=== PATIENT | male | born 1945 | race Caucasian/White ===

== ENCOUNTER 2016-06-07 17:34 | Emergency (ER) | payer MEDICARE, OTHER ==
--- NOTE | 2016-06-07 18:00 | EDM.PDOC ---
ED HPI GENERAL MEDICAL PROBLEM - General Chief Complaint: General Stated Complaint: leaking surgical dressing Time Seen by Provider: 06/07/16 17:42 Source of Information: Reports: Patient History Limitations: Reports: No limitations - History of Present Illness INITIAL COMMENTS - FREE TEXT/NARRATIVE: Patient had right total shoulder repair yesterday - SundayJune 06, was discharged today. He is here due to drainage. Arm is in immobilizer. Pain is controlled, he does not smoke, no drinking, no drugs. Medications include ASA, carvedilol, losartan, and allopurinol. Allergies to lisinopril. He has no other complaints. Onset: today Onset Time: 17:00 Location: Reports: upper extremity, right (right shoulder incision) - Related Data Allergies Allergy/AdvReac Type Severity Reaction Status Date / Time lisinopril Allergy Cough Verified 04/15/14 20:58 Home Meds: Home Meds Furosemide [Lasix] 40 mg PO BID 04/15/14 [History] Insulin Glarg,Human.Rec.Analog [Lantus Solostar] 50 units SQ BEDTIME 04/15/14 [ History] Losartan [Cozaar] 1 tab PO DAILY 04/15/14 [History] Pioglitazone [Actos] 30 mg PO DAILY 04/15/14 [History] Simvastatin [Simvastatin] 1 tab PO DAILY 04/15/14 [History] Spironolactone [Aldactone] 25 mg PO DAILY 04/15/14 [History] Social & Family History - Tobacco Use Smoking Status *Q: Former Smoker Years of Tobacco use: 20 - Alcohol Use Days Per Week of Alcohol Use: 2 Number of Drinks Per Day: 6 Total Drinks Per Week: 12 - Recreational Drug Use Recreational Drug Use: No ED ROS GENERAL - Review of Systems Review Of Systems: ROS reveals no pertinent complaints other than HPI. ED EXAM, GENERAL - Physical Exam Exam: See Below Exam Limited By: No limitations General Appearance: alert, WD/WN, no apparent distress Eye Exam: bilateral eye: EOMI, PERRL Neck: normal inspection Respiratory/Chest: no respiratory distress, lungs clear, normal breath sounds, no accessory muscle use, chest non-tender Cardiovascular: normal peripheral pulses, regular rate, rhythm, no edema, no gallop GI/Abdominal: normal bowel sounds, soft, non tender, no organomegaly, no distention, no abnormal bruit Extremities: normal inspection, non-tender, no pedal edema, normal capillary refill, arm pain, limited range of motion, other (Patient has drainage from his incision. It is serosanguinous. CMS intact.) Neurological: alert, oriented, CN II-XII intact, normal cognition, normal gait, normal reflexes, no motor/sensory deficits, other Psychiatric: normal affect, normal mood Skin Exam: Warm, Dry, Intact, Normal color, Wound/incision (romulo to right shoulder from surgical procedure. Wound is clean, approximated, and has minimal drainage from the bottom most distal area. No RANDY drainage is in place to assist with fluid removal. ) Lymphatic: no adenopathy Departure - Departure Time of Disposition: 18:32 Disposition: Home, Self-Care 01 Condition: good Clinical Impression: History of right shoulder replacement Instructions: Shoulder Joint Replacement, Care After Additional Instructions: Your post operative bleeding is normal. During surgery, they use saline to flush the area of blood and debris. This is continuing to drain out. If your romulo open up, your drainage does not stop over the next 2-3 days, you have severely increased pain, or are unable to move your arm, you should come in. Keep arm in immobilizer as long as ordered by surgeon. Keep incision covered until the drainage ceases to help absorb the fluid. Call if you have any questions or concerns. - Problem List & Annotations (1) History of right shoulder replacement SNOMED Code(s): 171471550, [id number] Code(s): Z96.611 - PRESENCE OF RIGHT ARTIFICIAL SHOULDER JOINT Status: Acute Priority: Low - Problem List Review Problem List Initiated/Reviewed/Updated: Yes - Assessment/Plan Assessment:: post right shoulder repair drainage Plan: Your post operative bleeding is normal. During surgery, they use saline to flush the area of blood and debris. This is continuing to drain out. If your romulo open up, your drainage does not stop over the next 2-3 days, you have severely increased pain, or are unable to move your arm, you should come in. Keep arm in immobilizer as long as ordered by surgeon. Keep incision covered until the drainage ceases to help absorb the fluid. Call if you have any questions or concerns.
== END 2016-06-07 18:25 | disposition home or self-care (01) ==
LOC: VM.ED 17:34
CPT/HCPCS: 99281-GF; 99283

== ENCOUNTER 2023-12-14 13:00 | Emergency (ER) | payer MEDICARE, OTHER ==
[2023-12-14 13:29] LABS: BASOPHILS ABSOLUTE AUTO 0.1 x10^3/uL (0.0-0.2); BASOPHILS PERCENT AUTO 0.7 % (0.2-1.2); EOSINOPHILS ABSOLUTE AUTO 0.3 x10^3/uL (0.0-0.5); EOSINOPHILS PERCENT AUTO 4.2 % (0.0-4.0); HEMATOCRIT 20.6 % (40.0-52.0); IMMATURE GRAN ABSOLUTE AUTO 0.01 x10^3/uL (0.00-0.07); LYMPHOCYTES PERCENT AUTO 14.3 % (25.0-50.0); MEAN CORPUSCULAR HEMOGLOBIN 33.3 pg (26.0-32.0); MONOCYTES ABSOLUTE AUTO 0.3 x10^3/uL (0.0-0.8); MONOCYTES PERCENT AUTO 4.3 % (2.0-11.0); NEUTROPHILS ABSOLUTE AUTO 5.3 x10^3/uL (1.8-7.7); NEUTROPHILS PERCENT AUTO 76.4 % (50.0-80.0); PLATELET COUNT,PLT 138 x10^3/uL (130-400); RED BLOOD CELL COUNT 2.04 x10^6/uL (4.5-6.0)
[2023-12-14 13:35] LABS: HEMOGLOBIN 6.8 g/dL (14.0-18.0)
[2023-12-14 13:50] LABS: INR 2.1 (0.9-1.1); PROTHROMBIN TIME 20.6 SEC (8.9-11.5)
[2023-12-14 13:58] LABS: A/G RATIO 0.78; ALANINE AMINOTRANSFERASE,ALT 17 U/L (16-63); ALBUMIN 3.1 g/dL (3.4-5.0); ALKALINE PHOSPHATASE 102 U/L (46-116); ANION GAP 21.9 mmol/L (5-15); ASPARTATE AMNIOTRANSFERASE,AST 17 U/L (15-37); BILIRUBIN TOTAL 0.3 mg/dL (0.2-1.0); CARBON DIOXIDE,CO2 18 mmol/L (21-32); CHLORIDE,CL 110 mmol/L (98-107); ESTIMATED GFR 6 mL/min (>=60); GLUCOSE RANDOM 153 mg/dL (70-99); POTASSIUM,K 4.9 mmol/L (3.5-5.1); PROTEIN TOTAL,TP 7.1 g/dL (6.4-8.2); SODIUM,NA 145 mmol/L (136-145)
[2023-12-14 14:00] LABS: BLOOD UREA NITROGEN,BUN 93 mg/dL (7-18); CREATININE 8.3 mg/dL (0.70-1.30)
[2023-12-14 18:32] VITALS: BP 95/54; PULSE 61
[2023-12-15 05:07] LABS: IRON 160 ug/dL (50-150); UIBC <55 ug/dL (155-355)
== END 2023-12-14 18:49 | disposition home or self-care (01) ==
LOC: VM.ED 13:00
DX: I13.2 Hypertensive heart and chronic kidney disease with heart failure and with stage 5 chronic kidney disease, or end stage renal disease (principal); D63.1 Anemia in chronic kidney disease; I50.9 Heart failure, unspecified; N18.6 End stage renal disease; Z99.2 Dependence on renal dialysis; I48.91 Unspecified atrial fibrillation; Z79.4 Long term (current) use of insulin; Z79.899 Other long term (current) drug therapy; Z88.8 Allergy status to other drugs, medicaments and biological substances
CPT/HCPCS: 36430; 80053; 82728; 83540; 83550; 85025; 85610; 85730; 86850; 86900; 86901; 86920; 86922; 99284; P9016

== ENCOUNTER 2024-04-14 12:39 | Emergency (ER) | payer MEDICARE, OTHER ==
[2024-04-14] MEDS: cefTRIAXone 1 GM Vial IVPUSH ONE (13:31)
[2024-04-14] MEDS: Norepinephrine Bit/D5W Premix 250 ML IV SCH (13:47)
[2024-04-14 14:27] VITALS: PULSE 74
[2024-04-14 15:08] VITALS: BP 109/47
== END 2024-04-14 15:00 | disposition short-term general hospital (02) ==
LOC: VM.ED 12:39 → SUPCPDRO 12:39 → VM.ED 15:00
DX: A41.9 Sepsis, unspecified organism (principal); I95.9 Hypotension, unspecified; R09.02 Hypoxemia; I11.0 Hypertensive heart disease with heart failure; I50.9 Heart failure, unspecified; Z88.8 Allergy status to other drugs, medicaments and biological substances; Z79.4 Long term (current) use of insulin; Z79.899 Other long term (current) drug therapy; R53.1 Weakness; R50.9 Fever, unspecified; I95.0 Idiopathic hypotension; R60.1 Generalized edema
CPT/HCPCS: 36415; 80053; 83605; 83880; 85025; 87040; 87428-QW; 93005; 93010; 96374; 96375; 99284; 99285-25; J0696

== ENCOUNTER 2024-08-04 11:02 | Emergency (ER) | payer MEDICARE, OTHER ==
[2024-08-04 11:35] LABS: HEMATOCRIT 30.7 % (40.0-52.0); HEMOGLOBIN 10.1 g/dL (14.0-18.0); MEAN CORPUSCULAR HGB CONC 32.9 g/dL (32.0-36.0); MEAN CORPUSCULAR VOLUME 103.4 fL (78.0-93.0); RED BLOOD CELL COUNT 2.97 x10^6/uL (4.5-6.0)
[2024-08-04 11:41] LABS: PLATELET COUNT,PLT 5 x10^3/uL (130-400); WHITE BLOOD CELL COUNT,WBC 1.9 x10^3/uL (4.0-10.0)
[2024-08-04 12:02] LABS: EOSINOPHILS ABSOLUTE MAN 0.1 x10^3/uL (0.0-0.5); EOSINOPHILS PERCENT MAN 3 % (0-4); LYMPHOCYTES ABSOLUTE MAN 0.4 x10^3/uL (1.0-4.8); LYMPHOCYTES PERCENT MAN 23 % (25-50); MONOCYTES PERCENT MAN 1 % (2-11); NEUTROPHILS ABSOLUTE MAN 1.4 x10^3/uL (1.8-7.7); SEG NEUTROPHILS PERCENT MAN 73 % (50-80)
[2024-08-04 12:03] LABS: HYPOCHROMASIA 1+ SLIGHT
[2024-08-04 12:05] LABS: ALANINE AMINOTRANSFERASE,ALT 14 U/L (16-63); ALBUMIN 3.3 g/dL (3.4-5.0); ALKALINE PHOSPHATASE 63 U/L (46-116); ASPARTATE AMNIOTRANSFERASE,AST 18 U/L (15-37); BILIRUBIN TOTAL 0.6 mg/dL (0.2-1.0); BLOOD UREA NITROGEN,BUN 70 mg/dL (7-18); CALCIUM 7.6 mg/dL (8.5-10.1); CARBON DIOXIDE,CO2 26 mmol/L (21-32); CHLORIDE,CL 101 mmol/L (98-107); GLUCOSE RANDOM 95 mg/dL (70-99); POTASSIUM,K 4.8 mmol/L (3.5-5.1); PROTEIN TOTAL,TP 6.3 g/dL (6.4-8.2); SODIUM,NA 139 mmol/L (136-145); TARGET CELLS 1+ SLIGHT
[2024-08-04 12:06] LABS: ANION GAP 16.8 mmol/L (5-15); PLATELET COUNT ESTIMATE MARKED DEC
[2024-08-04 12:07] LABS: CREATININE 7.4 mg/dL (0.70-1.30); ESTIMATED GFR 7 mL/min (>=60)
[2024-08-04 12:21] LABS: INR 2.4 (0.9-1.1); PROTHROMBIN TIME 24.4 SEC (9.6-12.0)
[2024-08-04 13:10] VITALS: BP 110/54; PULSE 60
== END 2024-08-04 13:30 | disposition home or self-care (01) ==
LOC: VM.ED 11:02
DX: I13.2 Hypertensive heart and chronic kidney disease with heart failure and with stage 5 chronic kidney disease, or end stage renal disease (principal); N18.6 End stage renal disease; D61.818 Other pancytopenia; B49 Unspecified mycosis; I50.9 Heart failure, unspecified; Z79.899 Other long term (current) drug therapy; Z79.4 Long term (current) use of insulin; Z99.2 Dependence on renal dialysis
CPT/HCPCS: 36415; 80053; 85025; 85610; 85730; 99284